=== PATIENT | female | born 1985 | race Caucasian/White ===

== ENCOUNTER → 2024-05-26 | Outpatient (BNVA) | payer OTHER, SELFPAY | END | disposition home or self-care (01) | PROVIDERS: PCP Student in an Organized Health Care Education/Training Program; Referring Provider Student in an Organized Health Care Education/Training Program; Visit Provider Urology | DX: N39.44 Nocturnal enuresis (principal); R31.9 Hematuria, unspecified; I10 Essential (primary) hypertension | CPT/HCPCS: 81003; 99212; G0463 ==

== ENCOUNTER → 2024-06-12 | Outpatient (CLI) | payer OTHER, SELFPAY ==
--- NOTE | 2024-06-12 11:30 | XR_ITS ---
Examination: Abdomen sonogram, complete Date and time of exam: June 12, 2024 1148 hours INDICATIONS: Elevated liver function tests on laboratory examination October 31, 2023 TECHNIQUE: Multiple real-time grayscale transabdominal sonographic images abdomen FINDINGS: Normal gallbladder. Normal common bile duct Pancreatic head 3.0 cm Aorta not enlarged. Liver 20 cm fatty infiltration Normal hepatopedal portal venous flow Patent IVC Right kidney 11.6 cm renal cortex 1.9 cm Left kidney 12.2 cm cortex 2.0 cm Mild bilateral renal parenchymal scar formation Spleen 12.0 cm IMPRESSION: Normal gallbladder Fatty liver Mild bilateral renal parenchymal scar formation.
== END | disposition home or self-care (01) ==
PROVIDERS: PCP Internal Medicine; Referring Provider Internal Medicine; Visit Provider Internal Medicine
DX: K76.0 Fatty (change of) liver, not elsewhere classified (principal); N28.89 Other specified disorders of kidney and ureter
CPT/HCPCS: 76700